=== PATIENT | female | born 1960 | race Two or more races ===

== ENCOUNTER 2017-05-11 13:21 | Emergency (ER) | payer OTHER ==
[~2017-05-11] VITALS: Ht 157.5 cm; Wt 57.6 kg
[2017-05-11 13:48] VITALS: BP 194/73
[2017-05-11] MEDS ORDERED: IBUPROFEN 200 MG TABLET ONE (15:10)
[2017-05-11] MEDS ORDERED: HYDROcodone/APAP 5/325 TABLET ONE (15:10)
[2017-05-11] MEDS ORDERED: HYDROcodone/APAP 5/325 TABLET PO ONE (15:30)
[2017-05-11] MEDS ORDERED: IBUPROFEN 200 MG TABLET PO ONE (15:30)
== END 2017-05-11 16:02 | disposition home or self-care (01) ==
LOC: ED 15:45
DX: S33.5XXA Sprain of ligaments of lumbar spine, initial encounter (principal); I10 Essential (primary) hypertension; W01.0XXA Fall on same level from slipping, tripping and stumbling without subsequent striking against object, initial encounter; Y93.89 Activity, other specified; Y92.89 Other specified places as the place of occurrence of the external cause; Y99.8 Other external cause status
CPT/HCPCS: 72072; 72110; 72220; 99284